=== PATIENT | male | born 1975 | race Caucasian/White ===

== ENCOUNTER 2023-03-11 19:12 | Emergency (ER) | payer BC, SELFPAY ==
[2023-03-11 19:14] VITALS: BP 143/88; PULSE 62; RESP 16; TEMP 36.1; O2SAT 99; BMI 29.7
[2023-03-11 19:17] VITALS: BP 143/88; PULSE 62; RESP 16; TEMP 36.1; O2SAT 99
--- NOTE | 2023-03-11 20:46 | EX.ED.DYSGE1 ---
HPI History of Present Illness Chief Complaint: Abscess Informant: patient Onset/Context/Timing Onset: Month(s) Context: Gradual Onset Timing: Continuous Current Severity: Mild Maximum Severity: Mild Narrative Narrative: 47-year old male right chest wall abscess started months ago and now is just large and he wants it removed. No prior history. No trauma to the area. No recent fever or illness. Prior similar symptoms: No Recent Illness/Hospitalization: No PFSH PFSH Home Medications hydrocodone-acetaminophen 5-325mg 5mg-325mg ([facility]) 1 ea PO Q4H PRN PRN Pain #20 tabs 08/16/16 [Rx Last Taken Unknown] naproxen 500 mg tablet 500 mg PO BID #20 tabs 08/16/16 [Rx Last Taken Unknown] cephalexin 500 mg capsule 500 mg PO Q8H 7 days #21 caps 03/11/23 [Rx Last Taken Unknown] Allergy/AdvReac Type Severity Reaction Status Date / Time No Known Allergies Allergy Verified 03/11/23 19:13 Social History Smoking Status: Never smoker ROS ROS ED ROS Narrative Denies recent illness. Review of Systems ROS Unobtainable: Denies due to encephalopathy Constitutional Constitutional ED: Denies chills or fever(s) Eyes Eyes: Denies blurry vision ENT ENT ED: Denies ear pain Cardiovascular Cardiovascular: Denies chest pain Respiratory/Chest Respiratory/Chest: Denies cough or dyspnea Gastrointestinal Gastrointestinal: Denies abdominal pain Genitourinary Genitourinary ED: Denies dysuria or hematuria Musculoskeletal Musculoskeletal: Denies arthralgias or back pain Integumentary Denies abscess or Abrasions Neurologic Neurologic: Denies headache(s) Psychiatric Psychiatric: Denies anxiety or depression Endocrine Endocrinology: Denies cold intolerance Hematologic/Lymphatic Hematologic/Lymphatic: Reports none Allergic/Immunologic Allergic/Immunologic ED: Denies mouth swelling or tongue swelling EXAM Physical Exam Narrative Exam Narrative: Appearing 47-year-old male. Vital signs stable afebrile. HEENT exam normal. Lungs clear. Heart regular rhythm no murmur. Right chest wall mid right chest he has an abscess about the size of a quarter. It is raised. It is fluctuant. No surrounding cellulitis. No crepitance. Mildly tender. No axillary lymphadenopathy. Abdomen soft nontender. Otherwise exam normal. Const Vital Signs: 12/28/23 19:14 03/11/23 19:17 Temperature 97.0 F L 97.0 F L Temperature Source Temporal Temporal Pulse Rate 62 62 Respiratory Rate 16 16 Blood Pressure 143/88 H 143/88 H Blood Pressure Mean 106 106 Pulse Ox 99 99 Oxygen Delivery Method Room Air Room Air Positive well nourished and well developed; Negative for cachectic, contractures or unkempt General Appearance ED: well developed and NAD; Negative for unkempt, cachectic, contractures, cyanotic, diaphoretic or pallor Nutritional Appearance: Negative for cachectic HEENT Reports moist mucous membranes Negative for trauma or tenderness Eyes PERRL and EOMs intact bilaterally General Eye ED: Negative for pale conjunctiva, scleral icterus or other Neck no lymphadenopathy, supple and no JVD General: Negative for tenderness Lymph Lymphatic: Negative for other Chest Wall inspection of chest normal and palpation of chest normal Chest: Negative for other Resp normal respiratory effort and clear to auscultation bilaterally Effort and Inspection: Negative for retractions Auscultation: Negative for rales, rhonchi or wheezes Cardio regular rate, regular rhythm, S1 normal heart sound, S2 normal heart sound and no murmurs Palpation: Negative for palpable S3 Rate: Negative for bradycardia or tachycardic Rhythm: Negative for abnormal rhythm GI normal to inspection, nondistended, normoactive bowel sounds, non-tender, non-distended and no masses; Negative for hepatosplenomegaly Inspection: Negative for abdominal distention Auscultation: normoactive bowel sounds Palpation: soft; Negative for tender or guarding Back/Spine no CVA tenderness General Back: Negative for CVA tenderness Cervical Spine: Negative for cervical spine tenderness Thoracic Spine / Upper Back: Negative for thoracic spinal tenderness Lumbar Spine / Lower Back: Negative for lumbar spinal tenderness Extremity normal to inspection General Extremety ED: Negative for edema or tenderness General Extremity: Negative for edema Neuro oriented x3 and CN's II-XII intact bilaterally Sensorium / Orientation: alert Motor Exam: strength 5/5 throughout Psych mental status grossly normal Appearance: Negative for unkempt Attitude: No agitated Mood & Affect: Negative for depressed Skin no rashes or lesions noted, no wounds and skin turgor normal Skin Narrative: Right chest wall abscess. General Skin Exam: elasticity normal; Negative for jaundice or pallor Lesions: No lesion noted Rashes: No rashes noted Trauma: Negative for abrasion Wounds: Negative for wounds noted MDM MDM MDM Narrative Medical decision making narrative: Patient right chest wall abscess. Clean. Local anesthetized with lidocaine. Incised and drained. Appeared to primarily be a sebaceous cyst. There was a foul smell be placed on antibiotic. Patient wound was irrigated. Packed. Discharged home on Keflex. Outpatient follow-up. Packing removal in 4 days. Motrin and Tylenol for pain. History & Record Review Discussion w/independent historian: Patient and Family Procedures Other Procedures Procedure(s): Right chest wall incision and drainage of sebaceous cyst.. Quarter sized. Clean. Local anesthetized with lidocaine. Incised with 11 blade. 1 inch incision. Expressed sebaceous material small pus.. Packed with 1/2 inch gauze. Instructed on wound care. Gauze removal 4 days. Outpatient follow-up. Treated with Keflex. Discharge Plan Triage Chief Complaint: Abscess ED Provider: Miki Sweeney Dx/Rx/DC Orders Clinical Impression: Sebaceous cyst Instructions: Epidermoid Cyst Infect Antibiotics Prescriptions: New cephalexin 500 mg capsule 500 mg PO Q8H 7 Days Qty: 21 0RF No Action naproxen 500 MG tablet 500 mg PO BID Qty: 20 0RF hydrocodone-acetaminophen [[facility]] 1 EACH tablet 1 ea PO Q4H PRN PRN (Reason: Pain) Qty: 20 0RF Rx Instructions: Primary Care Provider: Bucky Allen Referrals: Bucky Allen MD [Primary Care Provider] - 1 Week if not improving Activity Restrictions/Additional Instructions: Pull packing out in 4 days. Tylenol and Motrin for pain. Warm compresses or hot shower to the area. Antibiotic 1 pill 3 times a day for 7 days. If develop fever, increased swelling in that area or significant redness return. Follow-up with your doctor as needed. Disposition Disposition: Home, Self Care
[2023-03-11] MEDS: Lidocaine 1% (20 ml mdv) 20 ML Vial 10 ML INFILT (21:09)
--- OUTSIDE RECORDS SUMMARY | 2023-03-11 21:23 | XMS RPT_ITS | CCD ---
Author Name Unknown Address [address] [place] [address] Organization [facility] Care Team Providers Care Supervisor Component Assembler Name Role Phone Eloise Moya MD Primary Care Provider TENISHA MCNEIL Referring Unavailable TENISHA MCNEIL Attending Unavailable ELOISE MOYA Primary Care Unavailable RASHAAD JACKSON Referring Unavailable ELOISE MOYA Primary Care Unavailable ELOISE MOYA Primary Care Unavailable TENISHA MCNEIL Attending Unavailable ELOISE MOYA Primary Care Unavailable TENISHA MCNEIL Referring Unavailable ELOISE MOYA Primary Care Unavailable Eloise Moya MD Primary Care Provider Allergies Allergy Classification Reported Allergen(s) Allergy Type Date of Onset Reaction(s) Facility (12 sources) House dust mite; Translations: [DUST MITES] Allergy to substance 8 Other: See Comments [facility] Medications Current Medications Medication Drug Class(es) Dates Sig (Normalized) Sig (Original) predniSONE 20 mg oral tablet (9 sources) Start: 04-29-2022 End: 05-04-2022 take 2 tablets by mouth once daily predniSONE (DELTASONE) 20 mg tablet Take 2 tablets by mouth once daily for 5 days. 10 tablet 0 04/29/2022 05/04/2022 Active Completed/Discontinued Medications Medication Drug Class(es) Dates Sig (Normalized) Sig (Original) albuterol 0.83 mg/ml inhalation solution (20 sources) beta2-Adrenergic Agonist Start: 04-10-2021 take 2 puff(s) by inhalation every four hours as needed for wheezing albuterol HFA (PROAIR HFA) 90 mcg/actuation inhaler Indications: Uncomplicated asthma, unspecified asthma severity, unspecified whether persistent 2 Puffs every 4 hours as needed for wheezing/shortness of breath. Take as directed 18 g 5 04/10/2021 Active Problems Problem Classification Problem Date Documented Date Episodic/Chronic Asthma (20 sources) Uncomplicated asthma; Translations: [Unspecified asthma, uncomplicated] Onset: 03-07-2018 Chronic Chronic obstructive pulmonary disease and bronchiectasis (2 sources) Bronchitis; Translations: [Bronchitis, not specified as acute or chronic] Onset: 04-29-2022 Episodic Other lower respiratory disease (1 source) Cough; Translations: [Acute cough] Episodic Other upper respiratory disease (13 sources) Allergic rhinitis due to house dust mite; Translations: [Other allergic rhinitis] Onset: 12-16-2017 12-16-2017 Chronic Other upper respiratory disease (2 sources) Seasonal allergy; Translations: [Other seasonal allergic rhinitis] Chronic Other upper respiratory disease (1 source) Other seasonal allergic rhinitis; Translations: [Seasonal allergies] Onset: 09-12-2021 Chronic Results Test Name Value Interpretation Reference Range Facil ity Vital Signs Date Time Vital Sign Value Performing Clinician Cristina velasco 04-29-2022 16:36-0500 Body temperature 98.8 [degF] Rashaad Athy PA-C Work Phone: [facility] 04-29-2022 16:36-0500 Body weight 74.84 kg Rashaad Athy PA-C Work Phone: [facility] 04-29-2022 16:36-0500 Diastolic blood pressure 76 mm[Hg] Rashaad Athy PA-C Work Phone: [facility] 04-29-2022 16:36-0500 Heart rate 100 /min Rashaad Athy PA-C Work Phone: [facility] 04-29-2022 16:36-0500 Respiratory rate 20 /min Rashaad Athy PA-C Work Phone: [facility] 04-29-2022 16:36-0500 SaO2% (BldA) [Mass fraction] 97 % Rashaad Athy PA-C Work Phone: [facility] 04-29-2022 16:36-0500 Systolic blood pressure 120 mm[Hg] Rashaad Athy PA-C Work Phone: [facility] 09-12-2021 09:27-0400 Body weight 72.58 kg Tenisha Ruddy PA-C Work Phone: [facility] 07-24-2021 15:12-0400 Body weight 73.03 kg Tenisha Ruddy PA-C Work Phone: [facility] 07-24-2021 15:12-0400 Diastolic blood pressure 66 mm[Hg] Tenisha Ruddy PA-C Work Phone: [facility] 07-24-2021 15:12-0400 Heart rate 85 /min Tenisha Chongone PA-C Work Phone: [facility] 07-24-2021 15:12-0400 Respiratory rate 15 /min Tenisha Ruddy PA-C Work Phone: [facility] 07-24-2021 15:12-0400 SaO2% (BldA) [Mass fraction] 95 % Tenisha Ruddy PA-C Work Phone: [facility] 07-24-2021 15:12-0400 Systolic blood pressure 102 mm[Hg] Tenisha Chongone PA-C Work Phone: [facility] 07-24-2021 15:02-0400 Body height 161.3 cm Respiratory Wstr Work Phone: [facility] 07-24-2021 15:02-0400 Body weight 73.03 kg Respiratory Wstr Work Phone: [facility] 07-24-2021 15:02-0400 Heart rate 65 /min Respiratory Wstr Work Phone: [facility] 07-24-2021 15:02-0400 Respiratory rate 12 /min Respiratory Wstr Work Phone: [facility] 07-24-2021 15:02-0400 SaO2% (BldA) [Mass fraction] 95 % Respiratory Wstr Work Phone: [facility] Encounters Encounter Date Encounter Type Care Provider Facility Start: 07-20-2022 Refill Tenisha M Bar one PA-C Work Phone: Pulmonary Medicine Procedures Date Procedure Procedure Detail Performing Clinician Start: 07-24-2021 Spmtry w/vc expirato ry lyndon w/wo mxml vol vntj Tenisha Mcneil PA-C Work Phone: Start: 10-27-2017 Adult depression screening assessment Tenisha Mcneil PA-C Work Phone: Plan of Treatment Date Care Activity Detail Author Start: 03-30-2025 LIPID SCREEN LIPID SCREEN [facility] Start: 03-30-2023 DIABETES SCREEN DIABETES SCREEN [facility] Start: 11-13-2022 Influenza vaccination INFLUENZ A (Season Ended) [facility] Start: 04-29-2022 End: 05-13-2022 Influenza virus A and B RNA and SARS-CoV-2 (COVID-19) N gene panel - Respiratory specimen by KANE with probe detection [facility] Work Phone: Payers Date Payer Category Payer Unknown [employer] PPO [id number] 2021-Present [phone] [address] [place] [address] PPO [id number] 2021 Unknown [employer] PPO [id number] 2021-Present [phone] [address] [place] [address] PPO [id number] 2021 Unknown [id number] 2020 Unknown [employer] PREF [employer]ART PREFERRED GENERIC [id number] 2020-Present [phone] [address] [place] [address] PPO [id number] 2020 Unknown [id number] Social History Date Type Detail Facility Start: 07-05-2013 End: 04-29-2022 Tobacco smoking status NHIS Never smoked tobacco [facility] Start: 07-05-2013 End: 04-29-2022 Tobacco use and exposure User of smokeless tobacco [facility] History of tobacco use Chews Tobacco [facility] Start: 03-25-2020 End: 07-20-2022 Alcohol intake Not Asked [facility] Start: 11-08-2017 History SDOH Alcohol Comment Social. Not daily, no DUI. [facility] Start: 11-08-2017 End: 04-29-2022 Tobacco Comment Mother smoked in childhood home. SO of 24 years is a smoker. [facility] Start: 1975 Sex Assigned At Not on file C [facility] Start: 07-14-2021 End: 07-24-2021 Exposure to SARS-CoV-2 (event) Not sure [facility] Work Phone: Clinical Notes 05-20-2021 to 07-20-2022 Telephone Encounter - Anisha Vallejo LPN - 07/20/2022 4:16 PM EDTTelephone Encounter - Sofia Page RN - 07/20/2022 3:56 PM EDTTelephone Encounter - Anisha Vallejo LPN - 06/16/2022 4:03 PM EDT Note Date & Type Note Facility 07-20-2022 Miscellaneous Notes Formattin g of this note might be different from the original. [place] [facility] did not receive RX from 06/16 Anisha Vallejo LPN Patient phones requesting refills as follows: Patient needs the script fax to [email or web address] in [place]. Requested Prescriptions Pending Prescriptions Disp Refills fluticasone (FLOVENT) 220 mcg/actuation inhaler 3 Each 3 Sig: Inhale 1 Puff as instructed twice daily. Please review and advise. Sofia Page RN documented in this encounter [facility] 06-16-2022 Miscellaneous Notes Formattin g of this note might be different from the original. RX pended for printing, Physician: tenisha mcneil Call from patient requesting refill. Please Fax Requested Prescriptions Pending Prescriptions Disp Refills montelukast (SINGULAIR) 10 mg tablet 30 tablet 11 Sig: Take 1 tablet by mouth daily at bedtime. fluticasone (FLOVENT) 220 mcg/actuation inhaler Sig: Inhale 1 Puff as instructed twice daily. Pharmacy Name: [facility] Phone #: Sweta Cooper LPN documented in this encounter [facility] 04-30-2022 Miscellaneous Notes Formattin g of this note might be different from the original. Phone call placed detailed message left on patients identified voicemail. Cheri Antonio LPN Please notify that covid/flu testing negative. Continue with plan of care as discussed during visit. documented in this encounter [facility] 04-29-2022 Note HNO ID: [id number] Author: Rashaad Jackson PA-C Service: ? Author Type: Physician Harness Rigger Type: Progress Notes Filed: 04/29/2022 5:59 PM Note Text: This note was created using [employer]. Subjective Lazaro Brown is a 46 year old male. HPI Patient presents with cough and nasal congestion for 5 days. He has felt feverish at night. No cp or sob. He has felt feverish off and on. No vomiting or diarrhea. He works around the [employer] and they were ill last week. He does have hx of asthma. Review of Systems Constitutional: Positive for fever. HENT: Positive for congestion and rhinorrhea. Negative for ear pain and sore throat. Respiratory: Positive for cough and wheezing. Negative for shortness of breath. Cardiovascular: Negative. Gastrointestinal: Negative. Genitourinary: Negative. Musculoskeletal: Positive for myalgias. Neurological: Positive for headaches. All other systems reviewed and are negative. PAST MEDICAL HISTORY Diagnosis Date Asthma Current Outpatient Medications Medication Sig Dispense Refill albuterol (PROVENTIL) 2.5 mg /3 mL (0.083 %) nebulizer solution Use 3 mL via nebulizer every 6 hours as needed for wheezing/shortness of breath. 1 vial contains 3 ml. 100 Vial 1 montelukast (SINGULAIR) 10 mg tablet Take 1 tablet by mouth daily at bedtime. 30 tablet 11 fluticasone (FLOVENT) 220 mcg/actuation inhaler Inhale 1 Puff as instructed twice daily. 1 Inhaler 5 albuterol HFA (PROAIR HFA) 90 mcg/actuation inhaler 2 Puffs every 4 hours as needed for wheezing/shortness of breath. Take as directed 18 g 5 fluticasone (FLONASE ALLERGY RELIEF) 50 mcg/actuation nasal spray Use 1 [place] in each nostril once daily. 1 Bottle 5 predniSONE (DELTASONE) 20 mg tablet Take 2 tablets by mouth once daily for 5 days. 10 tablet 0 benzonatate (TESSALON PERLES) 100 mg capsule Take 2 capsules by mouth three times daily as needed. 30 capsule 0 fluticasone (FLONASE) 50 mcg/actuation nasal spray Use 2 Sprays in each nostril once daily. Rinse mouth after use. 1 Each 0 predniSONE (DELTASONE) 10 mg tablet 4 tablets daily for 3 days, 3 tablets daily for 3 days, 2 tablets daily for 3 days, 1 tablets daily for 3 days. (Patient not taking: Reported on 04/29/2022) 30 tablet 0 benzonatate (TESSALON PERLES) 100 mg capsule Take 1 capsule by mouth three times daily as needed for cough. FOR COUGHING. (Patient not taking: Reported on 04/29/2022) 100 capsule 1 No current facility-administered medications for this visit. PAST SURGICAL HISTORY Procedure Laterality Date NONE FAMILY HISTORY Problem Relation Age of Onset Asthma Mother Heart disease Mother Social History Tobacco Use Smoking status: Never Smokeless tobacco: Current Types: Chew Tobacco comments: Mother smoked in childhood home. SO of 24 years is a smoker. Substance Use Topics Drug use: No Objective BP 120/76 Pulse 100 Temp 37.1 ?C (98.8 ?F) Resp 20 Wt 74.8 kg (165 lb) SpO2 97% BMI 28.77 kg/m? Physical Exam Vitals reviewed. Constitutional: Appearance: Normal appearance. HENT: Head: Normocephalic and atraumatic. Right Ear: Tympanic membrane, ear canal and external ear normal. Left Ear: Tympanic membrane, ear canal and external ear normal. Nose: Congestion present. Mouth/Throat: Mouth: Mucous membranes are moist. Pharynx: Oropharynx is clear. Cardiovascular: Rate and Rhythm: Normal rate and regular rhythm. Heart sounds: Normal heart sounds. Pulmonary: Effort: Pulmonary effort is normal. Breath sounds: Normal breath sounds. Musculoskeletal: Cervical back: Neck supple. Skin: General: Skin is warm and dry. Findings: No rash. Neurological: Mental Status: He is alert. Assessment and Plan ASSESSMENT/PLAN: 1. Bronchitis - ICD9: 490, ICD10: J40 Chest x-ray clear. We will treat with prednisone, Tessalon and recommended using his albuterol inhaler. Also given Flonase for nasal congestion. If not improving over the next 5 to 7 days follow-up with PCP. - XR CHEST 2V FRONTAL/LAT - COVID WITH FLUA+B, ROUTINE Rashaadkaren Jackson PA-C [facility] 04-29-2022 Note HNO ID: [id number] Author: RT Thee(R) Service: ? Author Type: Can Line Operator Type: Progress Notes Filed: 04/29/2022 4:56 PM Note Text: Radiology Service Progress Note PATIENT NAME: Lazaro Brown DATE OF SERVICE: April 29, 2022 TIME: 4:50 PM PATIENT IDENTITY VERIFICATION COMPLETED USING TWO (2) IDENTIFIERS: Name and Date of confirmed by patient verbally. FALL SCREENING: Has the patient had 2 falls in the last year or 1 fall with injury or currently using an Ambulatory Assistive Device (Walker, Cane, Wheelchair, Crutches, etc.)? No PATIENT GENDER DATA: Male PATIENT RELEVANT IMPLANT DATA REVIEWED: Yes RADIOLOGY DEPARTMENT: General X-ray: Exam(s) Completed: Chest X-Ray PERIPHERAL IV DATA: Not applicable SIGNED BY: RT Thee(R) April 29, 2022 4:50 PM [facility] 04-29-2022 History of Presen t illness Narrative This note was created using [employer]. Subjective Lazaro Brown is a 46 year old male. HPI Patient presents with cough and nasal congestion for 5 days. He has felt feverish at night. No cp or sob. He has felt feverish off and on. No vomiting or diarrhea. He works around the [employer] and they were ill last week. He does have hx of asthma. Review of Systems Constitutional: Positive for fever. HENT: Positive for congestion and rhinorrhea. Negative for ear pain and sore throat. Respiratory: Positive for cough and wheezing. Negative for shortness of breath. Cardiovascular: Negative. Gastrointestinal: Negative. Genitourinary: Negative. Musculoskeletal: Positive for myalgias. Neurological: Positive for headaches. All other systems reviewed and are negative. PAST MEDICAL HISTORY Diagnosis Date Asthma Current Outpatient Medications Medication Sig Dispense Refill albuterol (PROVENTIL) 2.5 mg /3 mL (0.083 %) nebulizer solution Use 3 mL via nebulizer every 6 hours as needed for wheezing/shortness of breath. 1 vial contains 3 ml. 100 Vial 1 montelukast (SINGULAIR) 10 mg tablet Take 1 tablet by mouth daily at bedtime. 30 tablet 11 fluticasone (FLOVENT) 220 mcg/actuation inhaler Inhale 1 Puff as instructed twice daily. 1 Inhaler 5 albuterol HFA (PROAIR HFA) 90 mcg/actuation inhaler 2 Puffs every 4 hours as needed for wheezing/shortness of breath. Take as directed 18 g 5 fluticasone (FLONASE ALLERGY RELIEF) 50 mcg/actuation nasal spray Use 1 [place] in each nostril once daily. 1 Bottle 5 predniSONE (DELTASONE) 20 mg tablet Take 2 tablets by mouth once daily for 5 days. 10 tablet 0 benzonatate (TESSALON PERLES) 100 mg capsule Take 2 capsules by mouth three times daily as needed. 30 capsule 0 fluticasone (FLONASE) 50 mcg/actuation nasal spray Use 2 Sprays in each nostril once daily. Rinse mouth after use. 1 Each 0 predniSONE (DELTASONE) 10 mg tablet 4 tablets daily for 3 days, 3 tablets daily for 3 days, 2 tablets daily for 3 days, 1 tablets daily for 3 days. (Patient not taking: Reported on 04/29/2022) 30 tablet 0 benzonatate (TESSALON PERLES) 100 mg capsule Take 1 capsule by mouth three times daily as needed for cough. FOR COUGHING. (Patient not taking: Reported on 04/29/2022) 100 capsule 1 No current facility-administered medications for this visit. PAST SURGICAL HISTORY Procedure Laterality Date NONE FAMILY HISTORY Problem Relation Age of Onset Asthma Mother Heart disease Mother Social History Tobacco Use Smoking status: Never Smokeless tobacco: Current Types: Chew Tobacco comments: Mother smoked in childhood home. SO of 24 years is a smoker. Substance Use Topics Drug use: No Objective BP 120/76 Pulse 100 Temp 37.1 C (98.8 F) Resp 20 Wt 74.8 kg (165 lb) SpO2 97% BMI 28.77 kg/m Physical Exam Vitals reviewed. Constitutional: Appearance: Normal appearance. HENT: Head: Normocephalic and atraumatic. Right Ear: Tympanic membrane, ear canal and external ear normal. Left Ear: Tympanic membrane, ear canal and external ear normal. Nose: Congestion present. Mouth/Throat: Mouth: Mucous membranes are moist. Pharynx: Oropharynx is clear. Cardiovascular: Rate and Rhythm: Normal rate and regular rhythm. Heart sounds: Normal heart sounds. Pulmonary: Effort: Pulmonary effort is normal. Breath sounds: Normal breath sounds. Musculoskeletal: Cervical back: Neck supple. Skin: General: Skin is warm and dry. Findings: No rash. Neurological: Mental Status: He is alert. Assessment and Plan ASSESSMENT/PLAN: 1. Bronchitis - ICD9: 490, ICD10: J40 Chest x-ray clear. We will treat with prednisone, Tessalon and recommended using his albuterol inhaler. Also given Flonase for nasal congestion. If not improving over the next 5 to 7 days follow-up with PCP. - XR CHEST 2V FRONTAL/LAT - COVID WITH FLUA+B, ROUTINE Rashaad Jackson PA-C documented in this encounter [facility] 09-12-2021 Note HNO ID: [id number] Author: Tenisha Mcneil PA-C Service: ? Author Type: Physician Harness Rigger Type: Progress Notes Filed: 09/12/2021 9:46 AM Note Text: [facility] [place], 09/12/2021: Name: Lazaro Brown : 1975 The patient is here today by himself. HPI: Lazaro Brown is a 46 yo never smoker male with pmh significant for asthma. The patient is here for follow up of asthma. Since the last Pulmonary Clinic visit 07/24/2021, the patient admits to compliance with prescribed maintenance Rx: Flovent and Singulair. There have been no ED visit(s) for the management of asthma exacerbation. No hospitalization(s) for management of asthma exacerbation. Has used no prednisone for the management of exacerbation. Nightly use of rescue bronchodilator. No nocturnal awakenings per month with asthma symptoms. Increased cough. Prescribed Prednisone burst at last OV and the cough improved slightly and returned once the Prednisone was completed. Occasionally expels white sputum. No hemoptysis. No pleuritic chest pain. Variable wheezing. No dyspnea. No fevers or chills. No sick contacts. No disruption in taste or voice associated with use of inhaled corticosteroid. No tremor, palpitations, or muscle cramping associated with bronchodilator inhalation. PMH: Updated with patient today. FAMH: Updated with patient today. SOCH: Updated with patient today. ROS: General: Generally feels coughing. Appetite good. Eyes, Ears, nose, throat: Post nasal drip, rhinorrhea. No purulent nasal discharge, epistaxis. No hoarseness. Vision stable. Cardiac: No angina, edema, orthopnea. GI: No heartburn, dysphagia, diarrhea. Musculoskeletal: No pain. Neuro: No headache, focal weakness, tremor. Skin: No rash. Otherwise negative. IMMUNIZATIONS Prevnar 13 - xx Pneumovax 23 - xx Influenza - xx COVID-19 - xx Allergies were verified and updated, and medications were reconciled with the patient at this visit. PHYSICAL EXAMINATION: BP (P) 112/70 Pulse (P) 67 Resp (P) 17 Wt 72.6 kg (160 lb) SpO2 (P) 98% BMI 27.90 kg/m? Gen: No acute distress. Cooperative with examination. ENT: Nares clear. Oral hygeine good. Pharynx clear. Resp: No stridor, accessory respiratory muscle use. No crackles, wheezes. CV: Regular rythm. Heart tones normal. Radial pulses normal. Abd: Non distended. MSK: No kyphoscoliosis. Ext: Warm and well perfused. No cyanosis. Skin: No rash, eczema, urticaria. Neuro: Mental status normal. No tremor. DATA REVIEW: PFT, 07/24/2021 IMPRESSION: Spirometry is normal. Electronically Signed On 07-24-2021 17:43:16 EDT by Christina Moore M.D. ASSESSMENT/PLAN: 1. Severe persistent asthma with acute exacerbation - ICD9: 493.92, ICD10: J45.51 (primary diagnosis) Prednisone taper as directed. Tessalon Perles as needed up to 3 times daily for cough. Patient to notify me via MyChart is symptoms do not resolve. Continue Flovent and Singulair. - PREDNISONE 10 MG TABLET - BENZONATATE 100 MG CAPSULE 2. Acute cough - ICD9: 786.2, ICD10: R05.1 See #1. - PREDNISONE 10 MG TABLET - BENZONATATE 100 MG CAPSULE 3. Seasonal allergies - ICD9: 477.9, ICD10: J30.2 Flonase nasal spray I addressed the questions of the patient, and he expressed understanding and acceptance of my answers. Tenisha Mcneil PA-C [facility] 09-12-2021 History of Presen t illness Narrative [facility] [place], 09/12/2021: Name: Lazaro Brown : 1975 The patient is here today by himself. HPI: Lazaro Brown is a 46 yo never smoker male with pmh significant for asthma. The patient is here for follow up of asthma. Since the last Pulmonary Clinic visit 07/24/2021, the patient admits to compliance with prescribed maintenance Rx: Flovent and Singulair. There have been no ED visit(s) for the management of asthma exacerbation. No hospitalization(s) for management of asthma exacerbation. Has used no prednisone for the management of exacerbation. Nightly use of rescue bronchodilator. No nocturnal awakenings per month with asthma symptoms. Increased cough. Prescribed Prednisone burst at last OV and the cough improved slightly and returned once the Prednisone was completed. Occasionally expels white sputum. No hemoptysis. No pleuritic chest pain. Variable wheezing. No dyspnea. No fevers or chills. No sick contacts. No disruption in taste or voice associated with use of inhaled corticosteroid. No tremor, palpitations, or muscle cramping associated with bronchodilator inhalation. PMH: Updated with patient today. FAMH: Updated with patient today. SOCH: Updated with patient today. ROS: General: Generally feels coughing. Appetite good. Eyes, Ears, nose, throat: Post nasal drip, rhinorrhea. No purulent nasal discharge, epistaxis. No hoarseness. Vision stable. Cardiac: No angina, edema, orthopnea. GI: No heartburn, dysphagia, diarrhea. Musculoskeletal: No pain. Neuro: No headache, focal weakness, tremor. Skin: No rash. Otherwise negative. IMMUNIZATIONS Prevnar 13 - xx Pneumovax 23 - xx Influenza - xx COVID-19 - xx Allergies were verified and updated, and medications were reconciled with the patient at this visit. PHYSICAL EXAMINATION: BP (P) 112/70 Pulse (P) 67 Resp (P) 17 Wt 72.6 kg (160 lb) SpO2 (P) 98% BMI 27.90 kg/m Gen: No acute distress. Cooperative with examination. ENT: Nares clear. Oral hygeine good. Pharynx clear. Resp: No stridor, accessory respiratory muscle use. No crackles, wheezes. CV: Regular rythm. Heart tones normal. Radial pulses normal. Abd: Non distended. MSK: No kyphoscoliosis. Ext: Warm and well perfused. No cyanosis. Skin: No rash, eczema, urticaria. Neuro: Mental status normal. No tremor. DATA REVIEW: PFT, 07/24/2021 IMPRESSION: Spirometry is normal. Electronically Signed On 07-24-2021 17:43:16 EDT by Christina Moore M.D. ASSESSMENT/PLAN: 1. Severe persistent asthma with acute exacerbation - ICD9: 493.92, ICD10: J45.51 (primary diagnosis) Prednisone taper as directed. Tessalon Perles as needed up to 3 times daily for cough. Patient to notify me via MyChart is symptoms do not resolve. Continue Flovent and Singulair. - PREDNISONE 10 MG TABLET - BENZONATATE 100 MG CAPSULE 2. Acute cough - ICD9: 786.2, ICD10: R05.1 See #1. - PREDNISONE 10 MG TABLET - BENZONATATE 100 MG CAPSULE 3. Seasonal allergies - ICD9: 477.9, ICD10: J30.2 Flonase nasal spray I addressed the questions of the patient, and he expressed understanding and acceptance of my answers. Tenisha Mcneil PA-C documented in this encounter [facility] 07-24-2021 Note HNO ID: [id number] Author: Tenisha Mcneil PA-C Service: ? Author Type: Physician Harness Rigger Type: Progress Notes Filed: 07/24/2021 4:10 PM Note Text: [facility] [place], 07/24/2021: Name: Lazaro Brown : 1975 The patient is here today by himself. INTERVAL HISTORY: Lazaro Brown is a 46 yo male with pmh significant for asthma. Never smoker. The patient is here for follow up of asthma. Since the last Pulmonary Clinic visit 10/10/2018, the patient admits to compliance with prescribed maintenance Rx: Flovent and Singulair. Patient was seen in on 03/2020 and treated for asthma exacerbation. No hospitalization(s) for management of asthma exacerbation. Has used no prednisone for the management of exacerbation. 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 Dirt and dust is a trigger. No nocturnal awakenings per month with asthma symptoms. Increased cough with change in seasons.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
[2023-03-11 22:17] VITALS: PULSE 61; RESP 15; O2SAT 98
== END 2023-03-11 22:23 | disposition home or self-care (01) ==
PROVIDERS: Emergency Provider Emergency Medicine; PCP Family Medicine; Referring Provider Emergency Medicine; Visit Provider Emergency Medicine
DX: L72.3 Sebaceous cyst (principal)
CPT/HCPCS: 99283

== ENCOUNTER 2025-01-13 01:32 | Emergency (ER) | payer BC, SELFPAY ==
[2025-01-13 01:32] VITALS: BP 151/101; PULSE 97; RESP 18; TEMP 36.6; O2SAT 99; BMI 29.1
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
[2025-01-13 02:10] VITALS: BP 139/83; PULSE 84; RESP 16; TEMP 36.9; O2SAT 96
--- NOTE | 2025-01-13 02:13 | ED.RN ---
pt stated he would wait until morning to get his pain medication prescription
--- NOTE | 2025-01-13 02:17 | ED.RN ---
pt left before medications administered. notified Dr Farris. This RN attempted to contact patient, no answer. This RN called , Susan, and she stated the patient states that he can wait to get his scripts filled in the morning.
== END 2025-01-13 02:19 | disposition home or self-care (01) ==
PROVIDERS: Emergency Provider Emergency Medicine; PCP Family Medicine; Visit Provider Emergency Medicine
DX: T23.251A Burn of second degree of right palm, initial encounter (principal); T23.252A Burn of second degree of left palm, initial encounter; T31.0 Burns involving less than 10% of body surface; J45.909 Unspecified asthma, uncomplicated; W86.0XXA Exposure to domestic wiring and appliances, initial encounter; Y92.89 Other specified places as the place of occurrence of the external cause
CPT/HCPCS: 99282